=== PATIENT | male | born 1960 | race African-American/Black ===

== ENCOUNTER 2017-09-30 08:46 | Outpatient (CLI) | payer BC ==
[2017-09-30 10:16] LABS: Anion Gap 14 mmol/L (10-20); BUN (Urea Nitrogen) 18 mg/dL (8.4-25.7); Calc. Creatinine Clearance 0 mL/min (70-130); Calcium 9.9 mg/dL (7.8-10.44); Carbon Dioxide 24 mmol/L (22-29); Chloride 104 mmol/L (98-107); Estimated GFR-MDRD 90; Glucose 118 mg/dL (70-105); Potassium 5.1 mmol/L (3.5-5.1); Sodium 137 mmol/L (136-145)
[2017-09-30 12:50] LABS: Band 2 % (5-11); Eosinophils 3 % (0-10); Hemoglobin 14.2 g/dL (14.0-18.0); Lymphocytes 53 % (21-51); MDiff Complete? YES; Mean Corpuscular HGB CONC 31.5 g/dL (32.0-36.0); Mean Corpuscular Hemoglobin 28.1 pg (27.0-31.0); Mean Corpuscular Volume 89.4 fl (80.0-94.0); Mean Platelet Volume 7.1 fL (7.4-10.4); Monocytes 13 % (0-10); Neutrophil 27 % (42-75); Platelet Count 277 thou/uL (130-400); RBC Distribution Width 13.1 % (11.5-14.5); RBC Morphology Normal; Reactive Lymphocytes 1 % (0-10); Red Blood Cell (RBC) Count 5.05 mill/uL (4.70-6.10); White Blood Cell (WBC) Count 4.2 thou/uL (4.8-10.8)
--- NOTE | 2017-10-25 16:28 | EKG ---
Test Reason : Blood Pressure : / mmHG Vent. Rate : 074 BPM Atrial Rate : 074 BPM P-R Int : 152 ms QRS Dur : 154 ms QT Int : 400 ms P-R-T Axes : 008 -42 009 degrees QTc Int : 444 ms Normal sinus rhythm Left axis deviation Right bundle branch block Left ventricular hypertrophy with QRS widening Abnormal ECG When compared with ECG of 09-JAN-1994 11:25, Right bundle branch block is now Present Confirmed by DR. Enrike WATSON ([id number]) on 10/25/2017 4:28:13 PM Referred By: ANCELMO Confirmed By:DR. Enrike WATSON
== END 2017-09-30 08:47 | disposition home or self-care (01) ==
LOC: LABBT 08:46
PROVIDERS: ATTEND Neurological Surgery
DX: Z01.818 Encounter for other preprocedural examination (principal); M43.16 Spondylolisthesis, lumbar region
CPT/HCPCS: 80048; 85025; 93005; 93010

== ENCOUNTER 2017-10-07 06:03 | Day surgery (SDC) | payer BC ==
[2017-09-30 09:14] VITALS: BMI 40.3
[2017-10-07] MEDS ORDERED: Sodium Chloride 0.9% 10 ML ONE (06:24)
[2017-10-07] MEDS ORDERED: Fentanyl 250 MCG/5 ML VIAL ONE (06:52)
[2017-10-07] MEDS ORDERED: Midazolam HCl 2 mg/2 ml Vial ONE (07:12)
--- NOTE | 2017-10-07 09:26 | OP ---
DATE OF SERVICE: 10/07/2017 SURGEON: Bogdan Tidwell LAMINATING MACHINE OPERATOR HELPER: Ricardo Boss PA-C PROCEDURES: L4-5 laminectomy, left facetectomy, foraminotomy, interbody arthrodesis, intravertebral biomechanical device, local morselized autograft, demineralized bone matrix, posterior lateral arthro desis and pedicle screw instrumentation left L4-5. PROCEDURE IN DETAIL: The patient was brought into the operating room, intubated. He was rolled in t he prone position on gel-filled chest rolls. Incision made exposing L4 and L5 and our level was conf irmed by x-ray. We performed a central L4-5 laminectomy extended to the left and removed a huge left L4-5 facet complex. Left L4 and left L5 nerve roots were completely decompressed. The disc was inc ised and debrided. The bony endplates were decorticated for the purpose of arthrodesis and appropria tely sized intravertebral biomechanical PEEK device was brought into the field, filled with demineral ized bone matrix and local morselized autograft, and tapped into place securely at L4-5. Next, pedic le screws were placed at L4 and L5 on the left using lateral fluoroscopic guidance. A olegario was secure d between the screws, connected by nuts which were final tightened. The wound was then extensively i rrigated, immaculate hemostasis was secured. A combination of demineralized bone matrix and local mo rselized autograft was laid over the right laminar and posterolateral surfaces for the purpose of art hrodesis. Vancomycin powder was applied and the wound was then closed in anatomic layers.
[2017-10-07] MEDS ORDERED: HYDROmorphone 0.5 MG/0.5 ML SYRINGE ONE ×2 (09:28→09:35)
[2017-10-07] MEDS ORDERED: Ondansetron HCl/PF 4 MG/2 ML Vial IVP PRN (10:03)
[2017-10-07] MEDS ORDERED: HYDROmorphone 2 MG/ML VIAL SLOW IVP PRN (10:03)
[2017-10-07] MEDS ORDERED: Non-Formulary Medication 1 EACH PO PRN (10:03)
[2017-10-07] MEDS ORDERED: Promethazine HCl 25 MG/ML VIAL IM/IV PRN (10:03)
[2017-10-07] MEDS ORDERED: Promethazine HCl 25 MG/ML VIAL ONE (10:43)
[2017-10-07] MEDS ORDERED: HYDROcodone/Acetaminophen 5/325 mg Tablet ONE (12:52)
== END 2017-10-07 13:20 | disposition home or self-care (01) ==
LOC: SDC 06:03
PROVIDERS: ATTEND Neurological Surgery
PROC: 0SG0071 Fusion of Lumbar Vertebral Joint with Autologous Tissue Substitute, Posterior Approach, Posterior Column, Open Approach (ICD-10-PCS; principal; 2017-10-07)
DX: M43.16 Spondylolisthesis, lumbar region (principal); I10 Essential (primary) hypertension; E78.5 Hyperlipidemia, unspecified; E66.9 Obesity, unspecified; Z68.41 Body mass index [BMI] 40.0-44.9, adult; Z79.84 Long term (current) use of oral hypoglycemic drugs; Z79.899 Other long term (current) drug therapy; Z88.6 Allergy status to analgesic agent; Z98.890 Other specified postprocedural states
CPT/HCPCS: 76001; 96374; A4216; C1713; C1768; J0131; J1170; J2250; J2550; J3010; J3370; J3490

== ENCOUNTER 2017-10-23 15:28 | Outpatient (CLI) | payer BC ==
--- NOTE | 2017-10-23 15:45 | RAD ---
LUMBAR SPINE TWO VIEWS: History: Low back pain. Surgery. FINDINGS: There are four lumbar type vertebral bodies. Left pedicle screws and vertical olegario are in place at the L3-4 level. Other pedicles are intact. Metallic markers associated with interbody fusion material at the post-operative level are within the confines of the disc space. Vertebral body heights are maint ained. There is minimal degenerative spondylolisthesis at the post-operative level. Leftward convex c urvature of the upper lumbar spine is apparent on the frontal view. IMPRESSION: 1. Post-operative and degenerative changes of the lumbar spine. 2. Four lumbar type vertebrae. POS: [facility]
== END 2017-10-23 15:29 | disposition home or self-care (01) ==
LOC: TBSIIMAG 15:28
PROVIDERS: ATTEND Physician Assistant
DX: M43.16 Spondylolisthesis, lumbar region (principal); M47.896 Other spondylosis, lumbar region; Z98.890 Other specified postprocedural states
CPT/HCPCS: 72100

== ENCOUNTER 2017-11-28 14:09 | Outpatient (CLI) | payer BC ==
--- NOTE | 2017-11-28 16:02 | RAD ---
LUMBAR SPINE TWO VIEWS: 11/28/16 HISTORY: Surgery. Back pain. COMPARISON: 10/23/17. FINDINGS: Left pedicle screws and vertical olegario at the L3-[address] without perihardware lucency. Metallic markers associated with interbody fusion material remain within the confines of the disc spa ce. Rightward convexed curvature is again demonstrated. Vertebral body heights and AP alignment are m aintained. There is osteophytosis throughout the vertebral bodies and facets. IMPRESSION: Postoperative and degenerative changes lumbar spine, stable. POS: [facility]
== END 2017-11-28 14:10 | disposition home or self-care (01) ==
LOC: TBSIIMAG 14:09
PROVIDERS: ATTEND Neurological Surgery
DX: M51.36 Other intervertebral disc degeneration, lumbar region (principal); M47.896 Other spondylosis, lumbar region; Z98.1 Arthrodesis status
CPT/HCPCS: 72100

== ENCOUNTER 2018-03-06 11:02 | Outpatient (CLI) | payer BC ==
--- NOTE | 2018-03-06 14:21 | RAD ---
TWO VIEWS LUMBAR SPINE: Date: 03-06-18 Comparison: 11-28-17 History: Low back pain extending into the inguinal region, spondylolisthesis. FINDINGS: There appears to be a transitional L5 vertebral body. On the left there are pedicle screws present at L3 and L4 with a vertically oriented interlocking olegario and an intervening disc device. The post-opera tive hardware is unchanged when compared to the prior examination. There is anterolisthesis at this l evel measuring in the 6 mm range, stable. No evidence for hardware failure. No acute findings. IMPRESSION: Stable two view examination of the lumbar spine. POS: [facility]
== END 2018-03-06 11:03 | disposition home or self-care (01) ==
LOC: TBSIIMAG 11:02
PROVIDERS: ATTEND Neurological Surgery
DX: M43.16 Spondylolisthesis, lumbar region (principal)
CPT/HCPCS: 72100

== ENCOUNTER 2018-03-17 09:03 | Outpatient (CLI) | payer BC ==
--- NOTE | 2018-03-17 10:49 | CT ---
CT PELVIS WITH AND WITHOUT CONTRAST: HISTORY: One month of left hip and leg pain. Pain does cross to the contralateral groin. TECHNIQUE: Pre- and postcontrast pelvic CT is performed in the axial plane. Reformatted images are submitted fo r interpretation. FINDINGS: Visualized lower poles of the kidneys are unremarkable. Symmetric attenuation of the psoas muscles. Visualized aorta and pelvic vasculature is patent. Symmetric attenuation of the iliacus muscles. Visualized alimentary canal is unremarkable. Normal c aliber appendix. Prostate and urinary bladder are grossly unremarkable. With regard to the osseous structures, there is no evidence of fracture. Contour of both femoral hea ds are maintained. Mild degenerative change in the left and right hip. Mild degenerative change in the symphysis pubis. Sacrum and sacral alae are unremarkable. Unilateral left-sided transpedicular screw presumed at the L4 and L5 level, without perihardware luce ncy. Disk prosthesis at L3-L5. The left and right inguinal region do not demonstrate any lymphadenopathy. No inflammatory change. IMPRESSION: Unremarkable pre- and postcontrast pelvic CT. POS: [facility]
[2018-03-17] MEDS ORDERED: Iopamidol 370 76% 100 ML VIAL ONE (12:41)
== END 2018-03-17 09:04 | disposition home or self-care (01) ==
LOC: TBSIIMAG 09:03
PROVIDERS: ATTEND Neurological Surgery
DX: M51.36 Other intervertebral disc degeneration, lumbar region (principal); R10.30 Lower abdominal pain, unspecified
CPT/HCPCS: 72194

== ENCOUNTER 2018-10-09 14:45 | Outpatient (CLI) | payer BC ==
--- NOTE | 2018-10-09 15:40 | RAD ---
LUMBAR SPINE 2 VIEWS: INDICATION: History of back surgery. COMPARISON: Prior exam dated 03/06/2018. FINDINGS: Posterolateral spondylosis at L4-5 with intervertebral disk cages unchanged. Vertebral body heights are preserved. Spinal alignment appears unchanged. Slight anterolisthesis of L4 on L5 is similar-ap pearing. IMPRESSION: Stable postoperative lumbar spine. POS: [facility]
== END 2018-10-09 14:46 | disposition home or self-care (01) ==
LOC: TBSIIMAG 14:45
PROVIDERS: ATTEND Neurological Surgery
DX: M54.5 Low back pain (principal); Z98.890 Other specified postprocedural states
CPT/HCPCS: 72100